=== PATIENT | female | born 1985 | race Caucasian/White ===

== ENCOUNTER → 2024-07-08 14:27 | Outpatient (CLI) | payer OTHER, SELFPAY ==
--- NOTE | 2024-07-08 14:28 | DI.US.S_ITS ---
PROCEDURE: US PELVIC COMPLETE INDICATIONS: evaluate for polycystic ovaries TECHNIQUE: Real-time scanning was performed of the pelvic organs, with image documentation. Additional endovaginal scanning was necessary due to incomplete visualization of the adnexal and endometrial structures by transabdominal scanning. COMPARISON: None. FINDINGS: Uterus: 10 x 4.3 x 6.8 cm. IUD is not seen. Endometrium measures 10 mm. Multiple uterine fibroids mostly intramural in the left anterior region measuring 3.6 cm and mid anterior region measuring 2.5 cm in longest dimensions Ovaries: Not visualized. Simple appearing left adnexal cyst measures 4.5 x 3.1 cm. Other: No pathologic free fluid. IMPRESSION: Fibroid uterus, measuring up to 3.6 cm, mostly intramural. IUD is not seen. The ovaries were not distinctly seen. Left adnexal 4.5 x 3.1 cm cyst is either ovarian or para ovarian Dictated by: Erickson Nguyen M.D. on 07/09/2024 at 9:09 Approved by: Erickson Nguyen M.D. on 07/09/2024 at 9:10
== END ==
PROVIDERS: PCP Physician Assistant; Referring Provider Student in an Organized Health Care Education/Training Program; Visit Provider Student in an Organized Health Care Education/Training Program
DX: D25.1 Intramural leiomyoma of uterus (principal); E28.2 Polycystic ovarian syndrome; E66.01 Morbid (severe) obesity due to excess calories; Z68.44 Body mass index [BMI] 60.0-69.9, adult
CPT/HCPCS: 76830; 76856